=== PATIENT | female | born 1990 | race Caucasian/White ===

== ENCOUNTER 2019-05-13 06:03 | Emergency (ER) | payer SELFPAY ==
[2019-05-13] MEDS ORDERED: OXYCODONE-ACETAMINOPHEN 5-325 MG TABLET PO ONE (07:30)
--- NOTE | 2019-05-13 07:37 | RADIOLOGY REPORT (SQ) ---
Right ankle three view on 05/13/2019 at 6:30 AM CLINICAL INDICATION: Pain and swelling after fall COMPARISON: None FINDINGS: The ankle mortise is intact. Soft tissue swelling is noted around the ankle. There is age-indeterminate small avulsion fracture involving the lateral talar process. No other fracture is noted. Visualized joints are well aligned. No other bony abnormality is noted. IMPRESSION: Age-indeterminate small avulsion fracture involving the lateral talar process with otherwise no acute abnormality.
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
[2019-05-13 08:29] VITALS: BP 122/75
== END 2019-05-13 08:27 | disposition home or self-care (01) ==
LOC: ER 06:03
DX: S93.401A Sprain of unspecified ligament of right ankle, initial encounter (principal); X50.0XXA Overexertion from strenuous movement or load, initial encounter; E66.9 Obesity, unspecified; F17.210 Nicotine dependence, cigarettes, uncomplicated
CPT/HCPCS: 99283

== ENCOUNTER 2019-06-19 11:40 | Emergency (ER) | payer SELFPAY ==
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
[2019-06-19 13:18] LABS: A TYPE INFLUENZA AG NEGATIVE (NEGATIVE); B INFLUENZA AG NEGATIVE (NEGATIVE)
--- NOTE | 2019-06-19 13:50 | RADIOLOGY REPORT (SQ) ---
EXAM DESCRIPTION: CHEST 2 VIEWS COMPLETED DATE/TIME: 06/19/2019 1:33 pm REASON FOR STUDY: cough COMPARISON: None. NUMBER OF VIEWS: Two view. TECHNIQUE: Frontal and lateral radiographic views of the chest acquired. LIMITATIONS: None. FINDINGS: LUNGS AND PLEURA: Mild bronchial wall thickening. No consolidation, effusion, or pneumoth orax. MEDIASTINUM AND HILAR STRUCTURES: No masses. No contour abnormalities. HEART AND VASCULAR STRUCTURES: Heart normal in size and contour. No evidence for failure. BONES: No acute findings. HARDWARE: None in the chest. OTHER: No other significant finding. IMPRESSION: Mild bronchitis. TECHNICAL DOCUMENTATION: JOB ID: [id number] 2010 [employer]- All Rights Reserved Reading location - IP/workstation name: [email or web address]
[2019-06-19] MEDS ORDERED: ALBUTEROL SULFATE HFA (90 MCG/PUFF) 200 PUFF/8.5 GM MDI IH ONE (13:53)
[2019-06-19 14:29] VITALS: BP 150/87
== END 2019-06-19 14:29 | disposition home or self-care (01) ==
LOC: ER 11:40
DX: J40 Bronchitis, not specified as acute or chronic (principal); R05 Cough; M54.9 Dorsalgia, unspecified; M79.10 Myalgia, unspecified site; F17.210 Nicotine dependence, cigarettes, uncomplicated; Z98.84 Bariatric surgery status
CPT/HCPCS: 99283; 87804; 71046; J3490

== ENCOUNTER 2019-06-22 21:17 | Emergency (ER) | payer SELFPAY ==
[2019-06-22 21:32] VITALS: BP 132/78
== END 2019-06-23 03:08 | disposition left against medical advice (07) ==
LOC: ER 21:17
DX: Z53.21 Procedure and treatment not carried out due to patient leaving prior to being seen by health care provider (principal)

== ENCOUNTER 2019-08-21 07:59 | Day surgery (SDC) | payer OTHER, BC ==
[~2019-08-21 07:59] MED LIST: CEFAZOLIN SODIUM 2 GM in DEXTROSE 5%-WATER 100 ML IV PRN; DEXAMETHASONE SOD PHOSPHATE INJ 4 MG/1 ML VIAL ONE; FENTANYL CITRATE INJ/PF 100 MCG/2 ML AMPUL ONE; MIDAZOLAM 2 MG/2 ML INJ ONE; ONDANSETRON HCL INJ/PF 4 MG/2 ML SDV ONE; PROPOFOL INJ 200 MG/20 ML VIAL IV ONE
[2019-08-21 08:38] LABS: APPEARANCE,URINE CLOUDY; BILIRUBIN,URINE NEGATIVE (NEGATIVE); COLOR,URINE YELLOW; GLUCOSE, URINE NEGATIVE (NEGATIVE); KETONES,URINE NEGATIVE (NEGATIVE); LEUKOCYTE ESTERASE,URINE NEGATIVE (NEGATIVE); NITRITE,URINE NEGATIVE (NEGATIVE); PROTEIN,URINE NEGATIVE (NEGATIVE); UROBILINOGEN,URINE NEGATIVE mg/dL (<2.0)
--- NOTE | 2019-08-21 08:49 | RADIOLOGY REPORT (SQ) ---
EXAM DESCRIPTION: CHEST SINGLE VIEW COMPLETED DATE/TIME: 08/21/2019 8:38 am REASON FOR STUDY: preop COMPARISON: 06/19/2019 EXAM PARAMETERS: NUMBER OF VIEWS: One view. TECHNIQUE: Single frontal radiographic view of the chest acquired. RADIATION DOSE: NA LIMITATIONS: None. FINDINGS: LUNGS AND PLEURA: No opacities, masses or pneumothorax. No pleural effusion. MEDIASTINUM AND HILAR STRUCTURES: No masses. Contour normal. HEART AND VASCULAR STRUCTURES: Cardiomegaly. Normal vasculature. BONES: No acute findings. HARDWARE: None in the chest. OTHER: No other significant finding. IMPRESSION: 1. Cardiomegaly. No evidence for failure Correlation suggested. 2. No acute pulmonary findings. TECHNICAL DOCUMENTATION: JOB ID: [id number] 2010 [employer]- All Rights Reserved Reading location - IP/workstation name: [email or web address]
[2019-08-21 09:06] LABS: HEMATOCRIT 33.7 % (36.0-47.0); MEAN CORPUSCULAR HEMOGLOBIN 24.5 pg (27.0-33.4); MEAN CORPUSCULAR HGB CONC 32.5 g/dL (32.0-36.0); MEAN CORPUSCULAR VOLUME 75 fl (80-97); PLATELET COUNT 286 10^3/uL (150-450); RED BLOOD COUNT 4.47 10^6/uL (3.72-5.28); RED CELL DISTRIBUTION WIDTH 18.2 % (11.5-14.0); WHITE BLOOD COUNT 6.1 10^3/uL (4.0-10.5)
[2019-08-21 10:37] LABS: ANION GAP 5 (5-19); BLOOD UREA NITROGEN 12 mg/dL (7-20); CALCIUM 8.7 mg/dL (8.4-10.2); CARBON DIOXIDE 26 mmol/L (22-30); CHLORIDE 106 mmol/L (98-107); GLUCOSE 82 mg/dL (75-110); POTASSIUM 4.6 mmol/L (3.6-5.0)
[2019-08-21] MEDS ORDERED: FENTANYL CITRATE INJ/PF 100 MCG/2 ML AMPUL IV PRN ×3 (11:24)
[2019-08-21] MEDS ORDERED: ONDANSETRON HCL INJ/PF 4 MG/2 ML SDV IV PRN (11:24)
[2019-08-21] MEDS ORDERED: MEPERIDINE HCL/PF INJ 25 MG/1 ML DISP.SYRIN IV PRN (11:24)
[2019-08-21] MEDS ORDERED: PROMETHAZINE HCL INJ 25 MG/1 ML VIAL IV PRN ×2 (11:24)
[2019-08-21] MEDS ORDERED: DIPHENHYDRAMINE HCL 50 MG/ML VIAL IV PRN (11:24)
[2019-08-21] MEDS ORDERED: MORPHINE SULFATE 10 MG/ML INJ IV PRN (11:24)
[2019-08-21] MEDS ORDERED: BUPIVACAINE HCL 0.5%-EPI 1:200000 INJ/PF 30 ML VIAL ONE (12:25)
--- NOTE | 2019-08-21 12:29 | Operative Report ---
Operative Report DATE OF SURGERY: 08/21/19 PREOPERATIVE DIAGNOSIS: Left medial malleolar nonunion OPERATION: Takedown of nonunion and repeat ORIF of left medial malleolus SURGEON: DAMIEN WOODALL ANESTHESIA: GA TISSUE REMOVED OR ALTERED: Open hardware to CSS. Cultures to microbiology ESTIMATED BLOOD LOSS: Minimal PROCEDURE: With the patient supine on the operative table the left lower extremities prepped and draped in sterile fashion. Is elevated for exsanguination tourniquet inflated to 280 torr. The previous medial malleolar incision is opened taken to the level of the hardware. The medial malleolar plate is identified. Screws that are accessible are removed. A screw with a broken head is removed using a trephine. At this point the medial malleolar nonunion is identified using a 10 blade. The nonunion site is developed and debrided using curettes and rongeurs to remove the nonunion tissue. A Mitchell titanium distal fibula plate is molded to fit the medial malleolus. It secured with a single screw in the distal most hole angled proximally to compress across the nonunion site. The bone defect resulting from the debridement is then packed with the DOS bone substitute. 3 proximal screw holes are utilized for metadiaphyseal fixation of the plate. 2 additional holes were then placed from the distal aspect of the plate proximally but rather than being as far proximal as the first screw these are meant to be more of a subchondral location to provide compression medial to lateral. The construct is reviewed fluoroscopically as well as the alignment and felt to be adequate. The tourniquet is deflated. Hemostasis obtained with electrocautery. The wound is irrigated with bulb lavage. It subsequent closed in layers as directed Vicryl followed by radu. A sterile posterior plaster splint is applied and the patient is returned to the PACU in satisfactory condition..
--- NOTE | 2019-08-21 12:31 | Discharge Summary ---
Discharge Summary (SDC) - Discharge Final Diagnosis: Left medial malleolar nonunion Date of Surgery: 08/21/19 Discharge Date: 08/21/19 Condition: Good Forms: ASU Anesthesia D/C Instruction, Discharge POC-Surgical Service Treatment or Instructions: Touchdown weightbearing restriction on the left lower extremity. Referrals: KEENA MELARA PA-C [Primary Care Provider] - DAMIEN WOODALL MD [ACTIVE STAFF] - 08/31/19 8:30 am Discharge Diet: Regular Respiratory Treatments at Home: Deep Breathing/Coughing Discharge Activity: Balance Activity w/Rest, No tub bath, Other - Touchdown weightbearing restriction left lower extremity Home Care Assistance: None Needed Report the Following to Your Physician Immediately: Shortness of Breath, Fever over 101 Degrees, Drainage-Foul Smelling
[2019-08-21] MEDS: MORPHINE SULFATE 10 MG/ML INJ ONE ×2 (13:06→13:10)
--- NOTE | 2019-08-21 13:13 | EKG REPORT ---
SEVERITY:- NORMAL ECG - SINUS RHYTHM : Confirmed by: Mahesh Han MD 21-Aug-2019 13:12:44
[2019-08-21] MEDS ORDERED: LORAZEPAM INJ 2 MG/1 ML VIAL ONE (13:16)
[2019-08-21] MEDS: HYDROMORPHONE HCL INJ/PF 2 MG/ML AMPULE ONE ×2 (13:32→13:38)
[2019-08-21] MEDS ORDERED: KETOROLAC TROMETHAMINE 60 MG/2 ML SDV ONE (15:04)
[2019-08-21] MEDS ORDERED: SUCCINYLCHOLINE CHLORIDE INJ 200 MG/10 ML VIAL ONE (15:04)
--- NOTE | 2019-08-21 15:52 | RADIOLOGY REPORT (SQ) ---
EXAM DESCRIPTION: ANKLE LEFT AP/LATERAL; NO CHG FLUORO COMPLETED DATE/TIME: 08/21/2019 1:54 pm REASON FOR STUDY: ORIF LEFT ANKLE ASSISTED WITH FLUORO IN OR S82.842S DISPLACED BIMALLEOLAR FRACTUR E OF LEFT LOWER LEG, S COMPARISON: None. FLUOROSCOPY TIME: 0.5 minutes. 3 images submitted to PACS. TECHNIQUE: Intra-operative images acquired during surgical procedure to evaluate progress. NUMBER OF IMAGES: 3 LIMITATIONS: None. FINDINGS: Fluoroscopic images of the left ankle were obtained intraoperatively during a revision of a distal tibial ORIF. IMPRESSION: IMAGE(S) OBTAINED DURING PROCEDURE. COMMENT: Quality ID 145: Final reports for procedures using fluoroscopy that document radiation exp osure indices, or exposure time and number of fluorographic images (if radiation exposure indices are not available) Please consult full operative report of the attending physician for description of the procedure. TECHNICAL DOCUMENTATION: JOB ID: [id number] 2010 [employer]- All Rights Reserved Reading location - IP/workstation name: [email or web address]
--- NOTE | 2019-08-21 15:52 | RADIOLOGY REPORT (SQ) ---
EXAM DESCRIPTION: ANKLE LEFT AP/LATERAL; NO CHG FLUORO COMPLETED DATE/TIME: 08/21/2019 1:54 pm REASON FOR STUDY: ORIF LEFT ANKLE ASSISTED WITH FLUORO IN OR S82.842S DISPLACED BIMALLEOLAR FRACTUR E OF LEFT LOWER LEG, S COMPARISON: None. FLUOROSCOPY TIME: 0.5 minutes. 3 images submitted to PACS. TECHNIQUE: Intra-operative images acquired during surgical procedure to evaluate progress. NUMBER OF IMAGES: 3 LIMITATIONS: None. FINDINGS: Fluoroscopic images of the left ankle were obtained intraoperatively during a revision of a distal tibial ORIF. IMPRESSION: IMAGE(S) OBTAINED DURING PROCEDURE. COMMENT: Quality ID [id number]: Final reports for procedures using fluoroscopy that document radiation exp osure indices, or exposure time and number of fluorographic images (if radiation exposure indices are not available) Please consult full operative report of the attending physician for description of the procedure. TECHNICAL DOCUMENTATION: JOB ID: [id number] 2010 [employer]- All Rights Reserved Reading location - IP/workstation name: [email or web address]
[2019-08-21 15:58] VITALS: BP 147/83
== END 2019-08-21 15:50 | disposition home or self-care (01) ==
LOC: OROUT 07:59
PROVIDERS: ATTEND Orthopaedic Surgery
DX: S82.52XK Displaced fracture of medial malleolus of left tibia, subsequent encounter for closed fracture with nonunion (principal); X58.XXXD Exposure to other specified factors, subsequent encounter; M25.572 Pain in left ankle and joints of left foot; F17.210 Nicotine dependence, cigarettes, uncomplicated
CPT/HCPCS: 36415; 85027; 81025; 80048; 81001; 73600; 71045; 93005; 93010; 27766; C1713 ×8; C1769; J2250; J3490; J0690; J1100; J1885; J3010; J2270; J1170; J2060; J0330; J2405; J7060; J2704